=== PATIENT | male | born 1955 | race Caucasian/White ===

== ENCOUNTER 2020-03-10 17:02 | Emergency (ER) | payer OTHER ==
[~2020-03-10] VITALS: Ht 180.3 cm; Wt 83.0 kg
[2020-03-10 17:03] VITALS: BP 123/66
--- NOTE | 2020-03-10 17:12 | NUR ---
PT AMBULATED TO BED 7, STEADY GAIT.
--- NOTE | 2020-03-10 17:16 | NUR ---
PT WAS REFERRED FROM URGENT CARE C/O LOWER ABDOMINAL PAIN AND RECTAL ABSCESS X 2 WEEKS. PT DENIES NAUSEA, VOMITING, COUGH, FEVER, OR CP. PATIENT STATES PAIN OF 10/10 AT THIS TIME; VSS; PATIENT POSITIONED FOR COMFORT; HOB ELEVATED; BEDRAILS UP X1; BED DOWN. ER MD MADE AWARE OF PT STATUS. COLONSTOMY BAG IS IN PLACED WITH GAS AND STOOL W/O LEAKING.
[2020-03-10] MEDS ORDERED: SULFAMETH/TRIMETH DS 800/160MG 1 TAB PO ONE (18:05)
[2020-03-10] MEDS ORDERED: cephALEXin 500 MG CAP PO ONE (18:05)
[2020-03-10 18:14] VITALS: BP 126/64
--- NOTE | 2020-03-10 18:14 | NUR ---
Patient discharged with v/s stable. Written and verbal after care instructions given and explained. Patient alert, oriented and verbalized understanding of instructions. Ambulatory with steady gait. All questions addressed prior to discharge. ID band removed. Patient advised to follow up with PMD. Rx of bactrim,keflex given. Patient educated on indication of medication including possible reaction and side effects. Opportunity to ask questions provided and answered.
== END 2020-03-10 18:14 | disposition home or self-care (01) ==
LOC: MED 17:02
DX: L02.31 Cutaneous abscess of buttock (principal); J44.9 Chronic obstructive pulmonary disease, unspecified; Z98.890 Other specified postprocedural states
CPT/HCPCS: 99283

== ENCOUNTER 2020-06-29 15:36 | Emergency (ER) | payer OTHER ==
[~2020-06-29] VITALS: Ht 180.3 cm; Wt 81.6 kg
[2020-06-29 15:50] VITALS: BP 87/47
--- NOTE | 2020-06-29 15:55 | NUR ---
64 YEAR OLD MALE COMPLAINS OF LOWER LEFT QUADRANT PAIN THAT HAS BEEN GETTING PROGRESSIVELY WORSE SINCE COLOSTOMY BAG PLACEMENT IN 2012. COLOSTOMY BAG IS 1/10 FULL WITH YELLOW FLUID, SITE IS PINK WITH PROTRUSION. COLOSTOMY SITE CLEAN, DRY INTACT. PT COMPLAINS OF CHRONIC PAIN AT THIS SITE. PT DENIES NAUSEA, VOMITTING, OR DIARRHEA. PT DENIES CP OR SOB. PT AOX4, BREATHING EVEN AND UNLABORED, SKIN WARM AND DRY. PT PLACED ON MONITOR, HR 115, SPO2 98%, RR 23, BP 87/47. ERMD MADE AWARE OF PT STATUS. WILL CONTINUE TO MONITOR. PMH - HTN, CHF, COLOSTOMY BAG ALLERGIES - NKA
[2020-06-29] MEDS ORDERED: NACL 0.9% 500 ML IV ONE (16:05)
[2020-06-29 16:39] LABS: BASOPHILS # (AUTO) 0.1 K/uL (0.00-0.22); BASOPHILS % (AUTO) 1.1 % (0.0-2.0); EOSINOPHILS # (AUTO) 0.5 K/uL (0-0.4); EOSINOPHILS % (AUTO) 11.3 % (0.0-4.0); HEMATOCRIT 38.4 % (36-52); HEMOGLOBIN 12.4 g/dL (12.0-18.0); LYMPHOCYTES # (AUTO) 1.1 K/uL (2.0-11.5); LYMPHOCYTES % (AUTO) 23.3 % (20.5-51.1); MEAN CORPUSCULAR HEMOGLOBIN 30 pg (27-31); MEAN CORPUSCULAR HGB CONC 32 g/dL (33-37); MEAN CORPUSCULAR VOLUME 93.7 fL (80-94); MONOCYTES % (AUTO) 19.9 % (1.7-9.3); NEUTROPHILS # (AUTO) 2.2 K/uL (1.8-7.7); NEUTROPHILS % (AUTO) 44.4 % (42.2-75.2); PLATELET COUNT (AUTO) 244 K/uL (140-450); RED CELL DISTRIBUTION WIDTH 18.7 % (11.6-13.7); WHITE BLOOD COUNT (AUTO) 4.9 K/uL (4.8-10.8)
[2020-06-29 16:58] LABS: ALBUMIN 2.7 g/dL (3.4-5.0); ASPARTATE AMINOTRANSFERASE 15 U/L (15-37); CHLORIDE 99 mmol/L (98-107); CREATININE 1.2 mg/dL (0.6-1.3); GFR ARICAN-AMERICAN 78 mL/min (>90); GLUCOSE 93 mg/dL (74-106); SODIUM SERUM 132 mmol/L (136-145); TOTAL BILIRUBIN 0.4 mg/dL (0.0-1.0); UREA NITROGEN, BLOOD 6 mg/dL (7-18)
[2020-06-29 16:59] LABS: ACETAMINOPHEN < 0.5 ug/ml (10-30); SALICYLATE < 2.8 mg/dL (2.8-20.0)
[2020-06-29] MEDS ORDERED: POTASSIUM CHLORIDE 10 MEQ TABER PO ONE (17:05)
[2020-06-29] MEDS ORDERED: MAG SULF 2000 MG/WATER PREMIX 50 ML IV ONE (17:05)
[2020-06-29 17:06] LABS: BARBITURATE, URINE NEGATIVE ng/ml (NEG <=200); BENZODIAZEPINE, URINE NEGATIVE ng/mL (NEG <=200); CANNABINOID, URINE NEGATIVE ng/mL (NEG <=50); COCAINE, URINE NEGATIVE ng/mL (NEG <=300); PHENCYCLIDINE SCREEN,URINE NEGATIVE ng/mL (NEG <=25)
[2020-06-29 17:07] LABS: OPIATE, URINE POSITIVE ng/mL (NEG <=2000)
--- NOTE | 2020-06-29 17:15 | NUR ---
PT STATES THAT SINCE THE DR DOES NOT WANT TO GIVE HIM MEDICATIONS FOR PAIN THEN HE IS LEAVING. PT DENIED POTASSIUM AND MAGNESIUM MEDICATIONS, STATES HE DOES NOT CARE ABOUT THEM AND DOES NOT WANT THEM. PT WAS INFORMED OF IMPORTANCE OF MEDICATIONS. PT STATES HE DOES NOT A REPLACEMENT COLOSTOMY BAG AND HE WILL NOT WAIT. INFORMED PT WE MUST TAKE OUT IV, PT TORE OUT IV AND STATES "SEE I CAN DO WHAT YOU GUYS DO TOO". PT WALKED OUT OF FACILITY, STATES "IF YOU TRY TO STOP ME I WILL GET VERY MAD". ERMD MADE AWARE
== END 2020-06-29 15:50 | disposition home or self-care (01) ==
LOC: MED 15:36
DX: E87.6 Hypokalemia (principal); R10.9 Unspecified abdominal pain; F19.10 Other psychoactive substance abuse, uncomplicated; I11.0 Hypertensive heart disease with heart failure; J44.0 Chronic obstructive pulmonary disease with (acute) lower respiratory infection; Z98.890 Other specified postprocedural states; Z76.5 Malingerer [conscious simulation]
CPT/HCPCS: 36415; 80053; 80305; 85025; 93005; 96360; 99284; G0480; G0482; J7030; J3475

== ENCOUNTER 2020-06-29 17:48 | Emergency (ER) | payer OTHER ==
[~2020-06-29] VITALS: Ht 172.7 cm; Wt 74.8 kg
[2020-06-29 17:48] VITALS: BP 105/55
--- NOTE | 2020-06-29 17:55 | NUR ---
PT BECAME VERBALLY AGGRESSIVE TOWARDS DR. HOYOS WHILE BEING QUESTIONED BY DR. HOYOS. PT REFUSED TO BE TREATED BY DR. HOYOS. PT WAS IN A W/C BEING PREPARED TO GO INTO LOBBY. PATIENT REFUSED TREATMENT, SAT UP FROM [facility] AND WALKED OUT OF ER TOWARDS AMBULANCE BAY. PATIENT YELLED AT DR. HYOOS STATING HE DID NOT WANT TO COME HERE HE WANTED TO GO TO [place]. DR. HOYOS ADVISED THE PATIENT HE SPOKE TO [place] ER AND IS AWARE OF HIS VISIT THIS AM. PT REFUSED TO ALLOW NURSING STAFF TO APPLY COLOSTOMY TO COVER HIS STOMA. PT ELOPED FROM FACILITY.
== END 2020-06-29 17:55 | disposition left against medical advice (07) ==
LOC: MED 17:48
DX: E87.6 Hypokalemia (principal); F19.10 Other psychoactive substance abuse, uncomplicated; J44.9 Chronic obstructive pulmonary disease, unspecified; I11.0 Hypertensive heart disease with heart failure; K94.09 Other complications of colostomy
CPT/HCPCS: 99283